=== PATIENT | male | born 1960 | race Caucasian/White ===

== ENCOUNTER 2017-08-29 13:39 | Outpatient (CLI) | payer OTHER ==
--- NOTE | 2017-08-29 15:16 | XRAY Report ---
EXAM: LEFT HAND RADIOGRAPHY EXAM DATE: 08/29/2017 02:52 PM. CLINICAL HISTORY: Fifth finger pain since dislocation 3 days ago. COMPARISON: None. TECHNIQUE: 3 views. FINDINGS: Bones: There is a mildly displaced corner fracture involving the joint surface at the base of the fif th proximal phalanx on the radial side. The fracture is through a slightly expansile lucent bone lesi on with sclerotic margins measuring 10 mm in maximum diameter. No other traumatic or destructive bony abnormalities. Joints: Normal. No subluxations. Soft Tissues: Mild associated soft tissue swelling. IMPRESSION: Pathologic fracture with mild displacement at the base of the fifth proximal phalanx. [facility] Referring Provider Line: [phone] SITE ID: [id number]
== END 2017-08-29 13:40 | disposition home or self-care (01) ==
LOC: DI 13:39
PROVIDERS: ATTEND Family Medicine
DX: S62.617A Displaced fracture of proximal phalanx of left little finger, initial encounter for closed fracture (principal)